=== PATIENT | female | born 1985 | race Two or more races ===

== ENCOUNTER 2023-06-26 20:09 | Emergency (ER) | payer MEDICAID ==
[~2023-06-26] VITALS: Ht 167.6 cm; Wt 87.3 kg
[2023-06-26 20:29] VITALS: TEMP 98.6
[2023-06-27] MEDS ORDERED: KETOROLAC TROMETHAMINE 60 MG/2 ML VIAL IM ONE
[2023-06-27 03:39] VITALS: BP 122/76; PULSE 70; RESP 16
[2023-06-27] MEDS ORDERED: IBUP-2280 PO (04:05)
== END 2023-06-27 04:40 | disposition home or self-care (01) ==
LOC: EMS 20:13
DX: G43.909 Migraine, unspecified, not intractable, without status migrainosus (principal)
CPT/HCPCS: 99285; 84703; 70450; 96372; J1885